=== PATIENT | male | born 1955 | race Caucasian/White ===

== ENCOUNTER 2017-10-30 11:37 | Outpatient (CLI) | payer OTHER ==
--- NOTE | 2017-10-30 13:59 | XRAY Report ---
Procedure Date: 10/30/2017 Accession Number: [id number] / [id number] Procedure: XR - Knee 3 View RT CPT Code: FULL RESULT: EXAM: Knee 3 View RT DATE: 10/30/2017 12:50 PM CLINICAL HISTORY: LOW BACK,RT HIP RT KNEE PAIN COMPARISON: None. TECHNIQUE: 3 views. FINDINGS: Bones: There is no fracture or dislocation. Joints: Tricompartmental osteoarthrosis with joint space narrowing in the femorotibial compartments as well as the tibiofemoral articulation. There is no knee joint effusion. Soft Tissues: Normal. No soft tissue swelling. IMPRESSION: Advanced tricompartmental osteoarthrosis. RADIA
--- NOTE | 2017-10-30 15:09 | XRAY Report ---
Procedure Date: 10/30/2017 Accession Number: [id number] / [id number] Procedure: XR - Lumbar Spine 2 View CPT Code: FULL RESULT: EXAM: Lumbar Spine 2 View DATE: 10/30/2017 12:48 PM CLINICAL HISTORY: LOW BACK PX COMPARISON: None. TECHNIQUE: 2 views. FINDINGS: Alignment: Normal. No spondylolisthesis or scoliosis. Bones: Partial lumbarization of S1 is noted. Otherwise, there are 5 lumbar type non rib bearing vertebral bodies. No fractures or bone lesions. Disks and facets: There is desiccation of normal disc space height with a degenerative levoconvex scoliosis about L4 and marginal osteophytosis. Degenerative changes generally are most pronounced at L4-5 and L5-S1. Facet frothy is also most pronounced at these levels. Sacroiliac Joints: Unremarkable. Soft Tissues: Normal. The visualized bowel gas pattern is normal. IMPRESSION: Degenerative changes of the lower lumbar spine with mild levoconvex lumbar scoliosis. RADIA
--- NOTE | 2017-10-30 15:31 | XRAY Report ---
Procedure Date: 10/30/2017 Accession Number: [id number] / [id number] Procedure: XR - Hip w/Pelvis 2-3V RT CPT Code: FULL RESULT: EXAM: Hip w/Pelvis 2-3V RT DATE: 10/30/2017 12:22 PM CLINICAL HISTORY: LOW BACK,RT HIP RT KNEE PAIN COMPARISON: None. TECHNIQUE: 1 view of the pelvis and 1 view of the hip. FINDINGS: There is no acute fracture or dislocation. There is complete loss of the femoral acetabular joint space on the right with subchondral lucencies and sclerosis, end-stage femoral acetabular joint disease. Less severe advanced femoral acetabular osteoarthrosis is also noted. The sacroiliac joints and visualized lumbar spine as well as the overlying bowel gas pattern are within normal limits. IMPRESSION: End-stage right hip osteoarthrosis. Moderate left hip osteoarthrosis. RADIA
== END 2017-10-30 11:38 | disposition home or self-care (01) ==
LOC: DI 11:37
PROVIDERS: ATTEND Family Medicine
DX: M51.36 Other intervertebral disc degeneration, lumbar region (principal); M41.86 Other forms of scoliosis, lumbar region; M16.11 Unilateral primary osteoarthritis, right hip; M17.11 Unilateral primary osteoarthritis, right knee
CPT/HCPCS: 72100

== ENCOUNTER → 2020-01-19 | Outpatient (CLI) | payer MEDICARE, OTHER ==
[2020-01-19 18:14] LABS: BASOPHILS # (AUTO) 0.1 10^3/uL (0.0-0.1); BASOPHILS % (AUTO) 0.8 %; EOSINOPHILS # (AUTO) 0.4 10^3/uL (0.0-0.7); EOSINOPHILS % (AUTO) 5.5 %; HGB - HEMOGLOBIN 15.1 g/dL (14.0-18.0); LYMPHOCYTES # (AUTO) 2.2 10^3/uL (1.5-3.5); LYMPHOCYTES % (AUTO) 29.3 %; MEAN CORPUSCULAR HGB CONC 32.1 g/dL (32.0-36.0); MEAN CORPUSCULAR VOLUME 96.7 fL (80.0-94.0); MEAN PLATELET VOLUME 10.5 fL (7.4-11.4); MONOCYTES # (AUTO) 0.6 10^3/uL (0.0-1.0); MONOCYTES % (AUTO) 8.2 %; NEUTROPHILS # (AUTO) 4.2 10^3/uL (1.5-6.6); NEUTROPHILS % (AUTO) 55.9 %; PLT - PLATELET COUNT 227 10^3/uL (130-450); RED BLOOD COUNT 4.87 10^6/uL (4.70-6.10); RED CELL DISTRIBUTION WIDTH 14.2 % (12.0-15.0); WHITE BLOOD COUNT 7.5 x10^3/uL (4.8-10.8)
[2020-01-19 18:36] LABS: ALBUMIN/GLOBULIN RATIO 1.3 (1.0-2.2); ALKALINE PHOSPHATASE 54 IU/L (42-121); ALT ALANINE AMINOTRANSFERASE 23 IU/L (10-60); AST ASPARTATE AMINOTRANSFERASE 27 IU/L (10-42); BILIRUBIN,TOTAL 0.9 mg/dL (0.2-1.0); BUN - BLOOD UREA NITROGEN 21 mg/dL (6-20); CALCIUM 9.1 mg/dL (8.5-10.3); CARBON DIOXIDE - CO2 29 mmol/L (21-32); CHLORIDE 106 mmol/L (101-111); CHOL/HDL RATIO 3.8 (<5.0); CHOLESTEROL 214 mg/dL; CREATININE 0.8 mg/dL (0.6-1.2); GLUCOSE 101 mg/dL (70-100); HDL CHOLESTEROL 56 mg/dL; LDL CHOLESTEROL,CALCULATED 146 mg/dL; LDL/HDL RATIO 2.6 (<3.6); SODIUM 142 mmol/L (135-145); VLDL CHOLESTEROL 12 mg/dL
[2020-01-19 20:27] LABS: HEMOGLOBIN A1c% 5.2 % (4.27-6.07)
== END ==
LOC: LAB.WCP 11:35
PROVIDERS: ATTEND Family Medicine
DX: I10 Essential (primary) hypertension (principal); R73.01 Impaired fasting glucose; E78.1 Pure hyperglyceridemia; K64.9 Unspecified hemorrhoids; K21.9 Gastro-esophageal reflux disease without esophagitis
CPT/HCPCS: 36415; 80053; 80061; 83036; 83721; 84153; 84443; 85025

== ENCOUNTER 2020-02-14 00:02 | Emergency (ER) | payer MEDICARE ==
--- NOTE | 2020-02-14 00:06 | ED Physician Documentation ---
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 denies sob, denies cp. He has had similar episodes over past few weeks which have resolved within a few hours of onset. He went to PMD for one of these episodes but it had resolved by the time he was evaluated and thus EKG, per patient, was unremarkable. Review of Systems Constitutional: denies: Fever Cardiac: reports: Palpitations. denies: Chest pain / pressure, Pedal edema, Calf pain Respiratory: reports: Reviewed and negative GI: reports: Reviewed and negative Neurologic: denies: Generalized weakness PD PAST MEDICAL HISTORY - Past Medical History Past Medical History: No - Past Surgical History Past Surgical History: Yes General: Cholecystectomy - Present Medications Home Medications: Ambulatory Orders Medication Instructions Recorded Confirmed No Known Home Medications 02/14/20 02/14/20 - Allergies Allergies/Adverse Reactions: Allergies Allergy/AdvReac Type Severity Reaction Status Date / Time No Known Drug Allergies Allergy Verified 02/14/20 00:22 - Living Situation Living Arrangement: reports: At home - Social History Does the pt smoke?: No Does the pt drink ETOH?: No PD ED PE NORMAL - Vitals Vital signs reviewed: Yes - General General: Alert and oriented X 3, No acute distress, Well developed/nourished - HEENT HEENT: Moist mucous membranes - Neck Neck: Supple, no meningeal sign - Cardiac Cardiac: No murmur - Respiratory Respiratory: No respiratory distress, Clear bilaterally - Abdomen Abdomen: Soft, Non tender - Derm Derm: Normal color, Warm and dry - Extremities Extremities: No edema PD ED PE EXPANDED - Cardiac Cardiac: Tachy, Irregularly irregular Results - Vitals Vitals: Vital Signs - 24 hr 02/14/20 02/14/20 02/14/20 00:05 01:00 PDT 01:46 PDT Temperature 36.7 C Heart Rate 149 H 139 H 90 Respiratory 20 16 18 Rate Blood Pressure 136/87 H 141/87 H 150/88 H O2 Saturation 99 99 99 02/14/20 01:02 PST Temperature Heart Rate 88 Respiratory 16 Rate Blood Pressure 128/87 H O2 Saturation 98 Oxygen O2 Source Room air - EKG (time done) No standard instances Rate: Rate (enter#) (141) Rhythm: Atrial fibrillation [place]: Normal Intervals: RBBB Ischemia: Non specific changes #2 Rate: Rate (enter#) (93) Rhythm: NSR [place]: Normal Intervals: RBBB QRS: Normal Ischemia: Normal ST segments - Labs Labs: Laboratory Tests 02/14/20 02/14/20 02/14/20 00:18 00:18 00:18 WBC 9.3 RBC 4.89 Hgb 15.2 Hct 47.1 MCV 96.3 H MCH 31.1 H MCHC 32.3 RDW 13.8 Plt Count 232 MPV 10.0 Neut # (Auto) 4.8 Lymph # (Auto) 2.9 Heard # (Auto) 0.9 Eos # (Auto) 0.6 Baso # (Auto) 0.1 Absolute Nucleated RBC 0.00 Nucleated RBC % 0.0 PT 11.9 INR 1.1 APTT 28.6 Sodium 140 Potassium 3.8 Chloride 105 Carbon Dioxide 25 Anion Gap 10.0 BUN 32 H Creatinine 0.7 Estimated GFR (MDRD) 113 Glucose 104 H Calcium 9.0 Total Bilirubin 0.5 AST 28 ALT 25 Alkaline Phosphatase 62 Troponin I High Sens Total Protein 6.9 Albumin 4.0 Globulin 2.9 Albumin/Globulin Ratio 1.4 Lipase 34 TSH 02/14/20 02/14/20 00:18 00:18 WBC RBC Hgb Hct MCV MCH MCHC RDW Plt Count MPV Neut # (Auto) Lymph # (Auto) Heard # (Auto) Eos # (Auto) Baso # (Auto) Absolute Nucleated RBC Nucleated RBC % PT INR APTT Sodium Potassium Chloride Carbon Dioxide Anion Gap BUN Creatinine Estimated GFR (MDRD) Glucose Calcium Total Bilirubin AST ALT Alkaline Phosphatase Troponin I High Sens 10.5 Total Protein Albumin Globulin Albumin/Globulin Ratio Lipase TSH 3.03 - Rads (name of study) chest xray Radiology: Prelim report reviewed, See rad report PD MEDICAL DECISION MAKING - ED course Complexity details: reviewed results, re-evaluated patient, considered differential, d/w patient ED course: patient presents with new onset rapid atrial fibrillation with symptoms solely consisting of rapid and irregular palpitations. given 20mg IV cardizem via slow push which eventually resulted in conversion to NSR (procainamide was ordered but shortly before this was started patient converted to NSR). Conversion to NSR correlated with resolution of his symptoms. Departure - Departure Disposition: 01 Home, Self Care Clinical Impression: Atrial fibrillation Qualifiers: Atrial fibrillation type: paroxysmal Qualified Code(s): I48.0 - Paroxysmal atrial fibrillation Condition: Good Instructions: ED Afib Follow-Up: Davide Mcmullen MD [Primary Care Provider] - Within 1 week Discharge Date/Time: 02/14/20 01:02 PDT
[2020-02-14] MEDS ORDERED: diltiaZEM INJ 5 MG/ML VIAL IVP STA (00:23)
[2020-02-14 00:28] LABS: BASOPHILS # (AUTO) 0.1 10^3/uL (0.0-0.1); EOSINOPHILS # (AUTO) 0.6 10^3/uL (0.0-0.7); EOSINOPHILS % (AUTO) 5.9 %; HGB - HEMOGLOBIN 15.2 g/dL (14.0-18.0); LYMPHOCYTES # (AUTO) 2.9 10^3/uL (1.5-3.5); MEAN CORPUSCULAR HEMOGLOBIN 31.1 pg (27.0-31.0); MEAN CORPUSCULAR HGB CONC 32.3 g/dL (32.0-36.0); MEAN CORPUSCULAR VOLUME 96.3 fL (80.0-94.0); MONOCYTES # (AUTO) 0.9 10^3/uL (0.0-1.0); MONOCYTES % (AUTO) 9.7 %; NEUTROPHILS # (AUTO) 4.8 10^3/uL (1.5-6.6); PLT - PLATELET COUNT 232 10^3/uL (130-450); RED BLOOD COUNT 4.89 10^6/uL (4.70-6.10); RED CELL DISTRIBUTION WIDTH 13.8 % (12.0-15.0); WHITE BLOOD COUNT 9.3 x10^3/uL (4.8-10.8)
[2020-02-14 00:34] LABS: INR 1.1 (0.8-1.2); PT - PROTHROMBIN TIME 11.9 secs (9.9-12.6)
[2020-02-14 00:37] LABS: ALBUMIN/GLOBULIN RATIO 1.4 (1.0-2.2); BILIRUBIN,TOTAL 0.5 mg/dL (0.2-1.0); CREATININE 0.7 mg/dL (0.6-1.2); TOTAL PROTEIN 6.9 g/dL (6.7-8.2)
[2020-02-14 00:41] LABS: PARTIAL THROMBOPLASTIN TIME 28.6 secs (24.9-33.3)
[2020-02-14] MEDS ORDERED: PROCAINAMIDE 1,000 MG in SODIUM CHLORIDE 0.9% 240 ML IV STA (01:28)
[2020-02-14] MEDS ORDERED: PROCAINAMIDE 1,000 MG/10 ML SYRINGE ONE ×2 (01:40→01:45)
[2020-02-14 01:47] VITALS: BP 150/88
--- NOTE | 2020-02-14 08:26 | XRAY Report ---
PROCEDURE: Chest 2 View X-Ray INDICATIONS: palpitations TECHNIQUE: 2 view(s) of the chest. COMPARISON: None. FINDINGS: Surgical changes and devices: None. Lungs and pleura: No pleural effusions or pneumothorax. Lungs are clear. Mediastinum: The aorta is prominent and tortuous. The cardiac contours are within normal limits. Bones and chest wall: Mild, age-appropriate degenerative changes can be seen. Mild dextroconvex scol iotic curvature is seen. No suspicious bony abnormalities. Soft tissues appear unremarkable. IMPRESSION: No acute cardiopulmonary process is seen. Note: No significant discrepancy from the preliminary report. Reviewed by: Praful Ramirez MD on 02/14/2020 7:25 AM [facility] Approved by: Praful Ramirez MD on 02/14/2020 7:25 AM [facility] Station ID: [id number]
== END 2020-02-14 01:02 | disposition home or self-care (01) ==
LOC: ED 00:02
DX: I48.0 Paroxysmal atrial fibrillation (principal); I45.10 Unspecified right bundle-branch block
CPT/HCPCS: 36415; 71046; 80053; 83690; 84443; 84484; 85025; 85610; 85730; 93005; 96374; 99284; J2690

== ENCOUNTER 2020-03-29 07:54 | Outpatient (CLI) | payer MEDICARE | END 2020-03-29 07:55 | disposition home or self-care (01) | LOC: DI 07:54 | PROVIDERS: ATTEND Family Medicine | DX: I48.0 Paroxysmal atrial fibrillation (principal) | CPT/HCPCS: 93306 ==

== ENCOUNTER 2020-07-21 10:01 | Outpatient (CLI) | payer MEDICARE ==
[2020-07-21 11:06] LABS: DIGOXIN < 0.2 ng/mL
== END 2020-07-21 10:02 | disposition home or self-care (01) ==
LOC: LAB 10:01
PROVIDERS: ATTEND Nurse Practitioner
DX: I48.91 Unspecified atrial fibrillation (principal)
CPT/HCPCS: 36415; 80162

== ENCOUNTER 2021-03-08 11:09 | Outpatient (CLI) | payer MEDICARE ==
[2021-03-08 11:48] LABS: ALBUMIN 3.7 g/dL (3.2-5.5); ALBUMIN/GLOBULIN RATIO 1.2 (1.0-2.2); BILIRUBIN,TOTAL 0.6 mg/dL (0.2-1.0); CALCIUM 8.7 mg/dL (8.5-10.3); CREATININE 0.8 mg/dL (0.6-1.2); MAGNESIUM 2.1 mg/dL (1.7-2.8); POTASSIUM 4.3 mmol/L (3.5-5.0); TOTAL PROTEIN 6.9 g/dL (6.7-8.2)
== END 2021-03-08 11:10 | disposition home or self-care (01) ==
LOC: LAB 11:09
PROVIDERS: ATTEND Specialist
DX: E78.2 Mixed hyperlipidemia (principal); I48.0 Paroxysmal atrial fibrillation
CPT/HCPCS: 36415; 80053; 81599; 83704; 83735

== ENCOUNTER 2021-11-01 13:52 | Outpatient (CLI) | payer MEDICARE ==
--- NOTE | 2021-11-01 14:41 | SLEEP CARE CONSULTATION ---
Information from patient questionnaire entered by Kemi Bowling MA. I have reviewed and concur with the information entered by Kemi Bowling MA. This document represents the service I personally performed and the decisions made by , Debbie Antonio ARNP. History of Present Illness Service Date and Time: 11/01/2021 1352 Reason for Visit: New patient (ONSET 09/13/2018, ) Chief Complaint: reports: Unrefreshed sleep, Snoring, Observed pauses in breathing Date of Onset: 49 YEARS Usual bedtime: 11 PM Time it takes to fall asleep: 30 - 60 MINUTES Snores at night: Yes Observed to quit breathing while asleep: Yes Sleeps alone due to snoring: No Number of times waking at night: 1 Reasons for waking at night: reports: Bathroom. denies: Choking, Snoring, Gasping for air Toss, Turn, or Twitch while sleeping: No Recalls having dreams: Yes Usually gets out of bed at: 0900 Feels refreshed in the morning: No (mostly) Morning headache: Yes (1-2 times a month, last about 30 minutes or until cup of coffee) Sleepy or fatigued during the day: Yes Ever fallen asleep while driving: No Takes day naps: Yes (rarely) Dreams during day naps: No Prior sleep studies: No Additional HPI information: I had the pleasure of seeing MALORIE HENDRIX who was accompanied by his spouse today regarding the possibility of him having a sleep disorder. His current complaints are snoring and observed pauses in breathing. He states that his has noted that he "catches" his breath at night after a pause in breathing. He states his laboratory administrative director told him his atrial fibrillation may be connected to sleep apnea. He states that he has snored for a long time. He states he doesn't usually feel rested in the morning. 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 Patient is Single and lives in . Have you smoked in the past 12 months: No Alcohol use: Yes Alcohol amount and frequency: 6 X WEEKLY Caffeine use: Yes Caffeine amount and frequency: 2-4 X DAILY Family History Family history of sleep disordered breathing: Yes Family Hx Sleep Apnea: Father: Snoring, Sleep apnea - Untreated Allergies and Home Medications Known drug allergies: No Drug allergies reviewed: Yes (NKDA) Home medication list reviewed: Yes Allergy and home medication list: Allergies No Known Drug Allergies Allergy (Verified 02/14/20 00:22) Medications: Pradaxa Metoprolol Magnesium Turmeric Atorvastatin Review of Systems Weight loss over past 5 years: 90-100, in 2019 on Keto diet Cardiovascular: reports: high blood pressure, irregular heart rate or pulse Gastrointestinal: reports: heartburn Neurological: denies: headaches, head trauma Psychiatric: denies: Attention Deficit Hyperactivity, anxiety, depression Ear/Nose/Throat: reports: nasal congestion, tonsillectomy, wisdom teeth removed. denies: injury to nose Endocrine: denies: thyroid disease Immunologic: reports: sneezing, itching, allergies to food or environment (seasonal) Physical Exam Vital signs obtained and entered by: VIKAS OLIVA Blood Pressure: 121/82 (RESP 18, PULSE 69, RIGHT) Cuff size: wrist Heart Rate: 67 O2 Saturation: 97 (N95) Height: 6 ft 3 in Weight: 258 lb (CLOTHES) Body Mass Index: 32.2 BMI Classification: Obese Neck circumference: 15 (INCHES) Mouth and throat: narrow oropharynx Soft palate: long Hard palate: arched Uvula: normal Uvula visualization: 0% Mallampati Class IV Tongue: enlarged in size with teeth zarco on lateral edges Tonsils: absent bilaterally Neck: normal w/o lymphadenopathy or thyromegaly Heart: regular rate and rhythm Lungs: clear bilaterally Impression and Plan 1. Suspected Obstructive Sleep Apnea-Hypopnea Syndrome, as suggested by a history of loud and irregular snoring, observed cessation of breath while asl eep, gasping or choking in sleep and unrefreshed sleep. Narrow oropharynx and obesity are common predisposing factors for obstructive sleep apnea-hypopnea syndrome. I recommend proceeding to polysomnography to confirm the diagnosis and to assess severity. If the patient has significant sleep disordered breathing, a manual CPAP titration study will also be performed to find the optimal treatment pressure. I informed the patient of what the sleep studies involve and after some discussion, obtained agreement to proceed. The pathophysiology of obstructive sleep apnea-hypopnea syndrome was discussed with the patient and health risks of cardiovascular and cerebrovascular disease if not treated. 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 Patient agreed to plan. * Schedule polysomnography * Avoid long distance driving or driving when feeling sleepy. * Avoid alcohol, sedative and muscle relaxant around bedtime. * Attempt to lose weight. * Review instructions provided by trained office staff on how to prepare for the sleep study. * Return for follow-up after sleep study completed. Counseling Topics: Weight loss health impact Visit Type: In Office Other Participants: Spouse/Significant Other Time Spent with Patient (minutes): 34 Provider Statement: I spent 100% of the Face to Face Visit with the patient with greater than 50% spent counseling the patient and coordination of care.
[2021-11-01 14:42] VITALS: BP 121/82
== END 2021-11-01 13:53 | disposition home or self-care (01) ==
LOC: SC 13:52
PROVIDERS: ATTEND Nurse Practitioner Family
DX: R06.83 Snoring (principal); R06.81 Apnea, not elsewhere classified; R09.89 Other specified symptoms and signs involving the circulatory and respiratory systems; E66.9 Obesity, unspecified; Z68.32 Body mass index [BMI] 32.0-32.9, adult
CPT/HCPCS: 99203; G0463; 99212

== ENCOUNTER 2021-11-14 20:16 | Outpatient (CLI) | payer MEDICARE | END 2021-11-14 20:17 | disposition home or self-care (01) | LOC: SC 20:16 | PROVIDERS: ATTEND Nurse Practitioner Family | DX: G47.33 Obstructive sleep apnea (adult) (pediatric) (principal); G47.61 Periodic limb movement disorder | CPT/HCPCS: 95810 ==

== ENCOUNTER 2022-03-20 08:54 | Outpatient (CLI) | payer MEDICARE ==
--- NOTE | 2022-03-20 13:47 | XRAY Report ---
PROCEDURE: Hips 2V BILAT INDICATIONS: OA OF KNEES TECHNIQUE: 2 views of bilateral hips were acquired. COMPARISON: 10/30/2017 FINDINGS: Bones: Normal mineralization. No acute fractures. There are right arthroplasty components in place. N o periprosthetic lucency. There is severe degenerative joint space loss in the left femoral acetabular joint as well as subcor tical sclerosis and small subcortical cysts. Marginal osteophytes along the superior femoral neck. Sl ight flattening of the femoral head and decreased femoral head neck offset. The visualized pelvic rin g appears intact. Soft tissues: No suspicious soft tissue calcifications or masses. There are dystrophic calcificatio ns adjacent to the right greater trochanter. IMPRESSION: 1. Intact right hip arthroplasty. 2. Severe osteoarthritic change in the left hip, likely worsened by cam-type femoral acetabular impin gement morphology. Reviewed by: Lelo Rodriguez MD on 03/20/2022 1:45 PM PST Approved by: Lelo Rodriguez MD on 03/20/2022 1:45 PM PST Station ID: [id number]
--- NOTE | 2022-03-20 13:49 | XRAY Report ---
PROCEDURE: Knee 3 View LT INDICATIONS: OA OF KNEES TECHNIQUE: 3 views of the left knee(s) and one view of the right knee were acquired. COMPARISON: 10/30/2017 FINDINGS: Bones: Moderate and symmetric medial compartment joint space loss. Mild tricompartment marginal spur ring. Normal mineralization. No suspicious bone lesions or fractures. Soft tissues: Very small left joint effusion. Trace calcification at the distal quadriceps tendon in sertion. Trace linear calcification along the distal MCL insertion. IMPRESSION: 1. Moderate and symmetric tricompartment osteoarthritic change, most severe in the medial compartment . 2. Likely remote MCL injury and distal quadriceps tendinosis. Reviewed by: Lelo Rodriguez MD on 03/20/2022 1:47 PM PST Approved by: Lelo Rodriguez MD on 03/20/2022 1:47 PM PST Station ID: [id number]
== END 2022-03-20 23:59 | disposition home or self-care (01) ==
LOC: DI.N 08:54
PROVIDERS: ATTEND Physician Assistant Medical
DX: M17.0 Bilateral primary osteoarthritis of knee (principal); Z96.641 Presence of right artificial hip joint; M16.12 Unilateral primary osteoarthritis, left hip

== ENCOUNTER 2023-03-04 12:30 | Outpatient (CLI) | payer MEDICARE, BC ==
--- NOTE | 2023-03-04 15:07 | XRAY Report ---
PROCEDURE: Ankle 3 View RT INDICATIONS: RIGHT ANKLE PAIN WITH PERIPHERAL EDEMA TECHNIQUE: 3 views of the ankle were acquired. COMPARISON: None. FINDINGS: Bones: No fractures or dislocations. Ankle mortise is normally aligned. No suspicious bony lesions . Soft tissues: No tibiotalar joint effusion. Achilles tendon appears normal. Diffuse edema. IMPRESSION: No acute bony abnormality. Reviewed by: Clint Stein MD on 03/04/2023 3:05 PM PST Approved by: Clint Stein MD on 03/04/2023 3:05 PM PST Station ID: [id number]
== END 2023-03-04 12:45 | disposition home or self-care (01) ==
LOC: DI.N 12:30
PROVIDERS: ATTEND Registered Nurse
DX: M25.571 Pain in right ankle and joints of right foot (principal); R60.0 Localized edema